=== PATIENT | female | born 1965 | race Asian ===

== ENCOUNTER 2025-07-24 07:48 | Emergency (ER) | payer BC, SELFPAY ==
[2025-07-24 07:50] VITALS: BP 138/73
[2025-07-24 07:56] LABS: Glucose - Point of Care 128 mg/dl (70-99)
[2025-07-24 08:03] VITALS: BP 147/77; BMI 25.8
--- NOTE | 2025-07-24 08:26 | ED.GENMED ---
History of Present Illness
General
Chief Complaint: Dizziness
Source: patient
Exam Limitations: none
Time Seen by Provider: 07/24/25 08:07
Nursing documentation reviewed up to this point in time: agreed with
History of Present Illness
History of Present Illness:
Patient is a 60-year-old female who presents to the ER for evaluation. Patient reports she woke up this morning had some back pain. She typically gets muscle spasms and this is not necessarily new. While eating breakfast she got suddenly dizzy
room spinning sensation started vomiting. She has had vertigo in the past and this felt similar. Afterward she did notice some anterior chest discomfort. Patient arrives awake alert feels very tired and nauseous but denies room spinning dizziness
presently. Denies any chest pain or back pain.
She denies any associated trauma headache.
Patient reports that she has a history of high cholesterol and was seen by cardiology in the past. She is a patient of cardiology consulted felt often. 6 months ago she had a calcium score which was fine along with a negative stress test and
negative echocardiogram.
Phy Exam
General Physical Exam
General Presentation: no apparent distress
General age: appears stated age
General Skin: warm and dry
General Habitus: normal
General Mental: alert
General Hydration: appears well hydrated
Cardiovascular Exam
Cardiovascular Exam: regular rate/rhythm, no murmur and normal peripheral pulses
Pulmonary Exam
Pulmonary Exam: lungs clear and no respiratory distress
Gastrointestinal Exam
Gastrointestinal Exam: non tender and soft
Neurological Exam
Neurological Exam: alert and oriented x3
Musculoskeletal Exam
Musculoskeletal Exam: full ROM
Skin Exam
Skin Exam: normal color and warm/dry
Psychiatric Exam
Psychiatric Exam: normal mood/affect
Course
Orders/Labs/Results
Orders:
Orders
07/24/25 08:25
Electrocardiogram (*1) Stat
Reason for Study: Other
Other Reason for Exam: chest pain
CT Head W/o Iv Contrast Urgent
Comment:
Reason For Exam: vertigo
Cardiac Monitoring- Treatment ONCE
EKG- Treatment ONCE
IV Insert/Care/Rem.- Treatment PRN
0.9% Sodium Chloride 1000 ml [Nss] 1,000 ml IV BOLUS
Chest [CR Chest - 2 Views ] Urgent
Comment:
Reason For Exam: cp
07/24/25 08:32
Complete Blood Count/With Diff Urgent
Comprehensive Metabolic Panel Urgent
Troponin I Urgent
07/24/25 09:24
Ondansetron Injectable [Zofran] 4 mg IV NOW STA
07/24/25 11:21
Electrocardiogram (*1) Urgent
Reason for Study: Chest Pain
EKG- Treatment ONCE
07/24/25 11:36
Troponin I Urgent
Abnormal Lab Results
07/24/25 07/24/25
07:54 08:32
MCV 78.6 L fL
(81.0-99.0)
MCH 26.7 L pg
(27.0-31.0)
Lymphocytes % 20.3 L %
(20.5-51.1)
Creatinine 0.5 L mg/dL
(0.6-1.0)
Glucose 131 H mg/dl
(70-99)
POC Glucose 128 H mg/dl
(70-99)
07/24/25 08:32
07/24/25 08:32
Vital Signs
Initial and Last Documented VS:
Initial Vital Signs
Temp Pulse Resp BP Pulse Ox
98.0 F 72 16 138/73 98
07/24/25 07:50 07/24/25 07:50 07/24/25 07:50 07/24/25 07:50 07/24/25 07:50
Last Documented Vital Signs
Temp Pulse Resp BP Pulse Ox
98.0 F 88 15 147/77 98
07/24/25 07:50 07/24/25 09:30 07/24/25 09:30 07/24/25 08:03 07/24/25 09:14
MDM/Problems Addressed
Differential Diagnosis Includes:
Not limited to vertigo, chest pain
MDM/Problems Addressed:
Patient is a 60-year-old female who has past history of vertigo presents to the ER for evaluation. Patient initially had her typical back pain(typically gets muscle spasms in the morning) and then had vertigo while getting out of bed. Patient felt
okay however after eating breakfast started vomiting with vertigo. She then had some chest discomfort. She presented here awake alert she felt very tired however had no actual vertigo or chest pain during presentation. She had a normal cardiac
workup by travel registered nurse oncology of [facility] including CT calcium score echocardiogram and stress test.
Patient was kept for 2 cardiac troponins both of which were negative, no acute findings on EKG. Normal neurologic exam no nystagmus head CT negative. 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
Chronic conditions affecting care:
vertigo, hyperlipidemia
*Radiology
Radiology exam reviewed: radiology read reviewed
*Pulse Oximetry
SaO2: 98
Oxygen Mode of Delivery: Room air
Patient hypoxic: no
*EKG
Interpreted by ED Provider?: Yes
Interpretation: abnormal
Heart Rate: 65
Rate: normal
Rhythm: sinus
Ischemia: other (repeat ekg no acute findings )
*Critical Care Note
Total Time (30-74mins, 75-104mins- exclusive of procedures): Not Applicable
ED Attending Note
-
Portions of this chart may have been created with voice recognition software.� Occasional wrong word or��sound alike� substitutions may have occurred due to the inherent limitations of voice recognition software.
Discharge Plan
Departure
Patient Disposition: Home (Routine Discharge)
Date of Disposition: 07/24/25
Time of Disposition: 13:21
Patient with high blood pressure during this ER visit?: Yes
Condition: Fair
Covid-19: Not Applicable
Discharge Problem:
Vertigo, Chest pain
Instructions: Vertigo (a Type of Dizziness) (DC), Chest Pain NON-DHP Executive Vp Follow Up, BLOOD PRESSURE
Prescriptions:
New
meclizine 25 mg tablet
25 mg PO TID PRN (Reason: dizziness) Qty: 10 0RF
Referrals:
Ramya Venegas MD [Family Provider, Family Practice]
Activity Restrictions/Additional Instructions:
As discussed you may take meclizine as needed. This medication was sent to your pharmacy take only as directed. Follow-up with your family doctor the next 4 days as well as cardiology. Return if any worsening of symptoms
Interventions
Interventions:
*Risk Screen - Suicide Last Done: 07/24/25 07:50
*General Assessment Last Done: 07/24/25 08:06
*Neglect/Abuse Screening Last Done: 07/24/25 07:50
*ED- Fall Risk Assessment Last Done: 07/24/25 08:06
*ED COVID-19 Vaccine History Last Done: 07/24/25 08:06
*Nursing Disposition Last Done: 07/24/25 13:47
ED- Neurological Assessment Last Done: 07/24/25 08:03
ED- Cardiac Assessment Last Done: 07/24/25 13:47
Discharge Date and Time
Discharge Date/Time: 07/24/25 13:48
Print Language: MONGOLIAN
[2025-07-24] MEDS: NSS 1000 IV (08:35)
[2025-07-24 08:51] LABS: Hematocrit 38.3 % (37.0-47.0); Hemoglobin 13.0 g/dL (12.0-16.0); Mean Corp Hgb Conc. 33.9 g/dL (33.0-37.0); Mean Corpuscular Volume 78.6 fL (81.0-99.0); Nucleated Red Blood Cells % 0 %; Platelet Count 260 10^3/uL (130-400); Red Cell Dist. Width 13.2 % (11.5-14.5)
[2025-07-24 09:05] LABS: ALT (SGPT) 22 U/L (0-35); AST (SGOT) 21 U/L (14-36); Albumin 4.7 g/dl (3.5-5.0); Alkaline Phosphatase 93 U/L (38-126); Blood Urea Nitrogen 14 mg/dl (7-17); Calcium 9.4 mg/dl (8.4-10.2); Carbon Dioxide 26 mmol/L (22-30); Chloride 103 mmol/L (98-107); Estimated Creatinine Clearance 83 ml/min; Glucose 131 mg/dl (70-99); Potassium 3.7 mmol/L (3.5-5.1); Sodium 137 mmol/L (135-145); Total Protein 8.0 g/dl (6.3-8.2); eGFR > 60.00
[2025-07-24 09:07] LABS: Troponin I < 0.012 ng/ml
[2025-07-24] MEDS: ZOFRAN 4 MG IV (09:31)
[2025-07-24 12:08] LABS: Troponin I < 0.012 ng/ml
== END 2025-07-24 13:48 | disposition home or self-care (01) ==
LOC: EMR 07:48
PROVIDERS: Nurse Practitioner; EMERGENCY PHYSICIAN Emergency Medicine; FAMILY PHYSICIAN Family Medicine
DX: R42 Dizziness and giddiness (principal); R07.89 Other chest pain; E78.00 Pure hypercholesterolemia, unspecified; G31.9 Degenerative disease of nervous system, unspecified
CPT/HCPCS: 99284; 70450; 71046; 80053; 82962; 84484; 85025; 93005